=== PATIENT | male | born 1995 | race Caucasian/White ===

== ENCOUNTER 2018-08-27 22:28 | Emergency (ER) | payer SELFPAY ==
[2018-08-27] MEDS ORDERED: Ibuprofen 800 MG TAB ONE (22:44)
--- NOTE | 2018-08-27 22:50 | RAD ---
RIGHT FOOT THREE VIEWS: 08/27/17 HISTORY: Right foot injury. FINDINGS: Lisfranc joint alignment is anatomic. Pes planus on the lateral view. No acute fracture or dislocatio n. IMPRESSION: No acute osseous abnormalities are demonstrated. POS: ANAT
== END 2018-08-27 23:16 | disposition home or self-care (01) ==
LOC: ERS 22:28
DX: M79.671 Pain in right foot (principal); F90.9 Attention-deficit hyperactivity disorder, unspecified type; F17.210 Nicotine dependence, cigarettes, uncomplicated

== ENCOUNTER 2018-09-13 21:56 | Emergency (ER) | payer SELFPAY | END 2018-09-13 22:19 | disposition home or self-care (01) | LOC: ERS 21:56 | DX: B86 Scabies (principal); F90.9 Attention-deficit hyperactivity disorder, unspecified type; F17.210 Nicotine dependence, cigarettes, uncomplicated | CPT/HCPCS: 99283 ==

== ENCOUNTER 2019-08-13 15:03 | Emergency (ER) | payer SELFPAY ==
--- NOTE | 2019-08-13 15:44 | ULT ---
US Testicular W Doppler History: Groin pain Comparison: None. Findings: Real-time grayscale, color, and spectral analysis of the testicles was performed. Adequate symmetric vascular flow to both testicles. Normal echotexture. No mass. Small left varicocel e. Impression: Small left varicocele otherwise unremarkable exam.
[2019-08-13] MEDS ORDERED: Ketorolac Tromethamine 60 MG/2 ML VIAL ONE (16:45)
== END 2019-08-13 17:08 | disposition home or self-care (01) ==
LOC: EEVIPCON 15:03 → ERS 15:03
DX: N45.1 Epididymitis (principal); R36.1 Hematospermia; F90.9 Attention-deficit hyperactivity disorder, unspecified type; F32.9 Major depressive disorder, single episode, unspecified; F17.210 Nicotine dependence, cigarettes, uncomplicated
CPT/HCPCS: 76870; 93976; 96372; J1885